=== PATIENT | female | born 1980 | race Caucasian/White ===

== ENCOUNTER 2018-08-07 14:31 | Outpatient (CLI) | payer OTHER ==
[~2018-08-07] VITALS: Ht 154.9 cm; Wt 60.1 kg
[2018-08-07 14:43] VITALS: Ht 154.9 cm; Wt 60.1 kg
[2018-08-07] MEDS ORDERED: PREN-93 PO (14:45)
--- NOTE | 2018-08-07 17:48 | TRIAGE ---
OB Triage Datetime Report Generated by CPN: 08/07/2018 17:48 Datetime: 08/07/2018 17:44 Stage of : OB Triage Maternal Assessment Level of Consciousness: Fully Conscious DTR's/Clonus: DTRs 1+ Headache: Denies Nausea/Vomiting: Denies RUQ Epigastric Pain: Denies Labor Evaluation Frequency: NONE Monitor Mode: External Quality: Mild Resting Tone [place]: Relaxed Heart Rate FHR Baseline Rate: 145 Monitor Mode: External US Variability: Moderate 6-25 bpm Accelerations: 15X15 Decelerations: None Category: Category I Pain Assessment Pain Scale: 0 Pain Presence: None/Denies Pain Type: N/A Pain Goal: 3 Vaginal Exam Membrane Status: Intact Datetime: 08/07/2018 16:56 Stage of : OB Triage Maternal Assessment Level of Consciousness: Fully Conscious DTR's/Clonus: DTRs 1+ Headache: Denies Nausea/Vomiting: Denies RUQ Epigastric Pain: Denies Labor Evaluation Frequency: NONE Monitor Mode: External Quality: Mild Resting Tone [place]: Relaxed Heart Rate FHR Baseline Rate: 145 Monitor Mode: External US Variability: Moderate 6-25 bpm Accelerations: 15X15 Decelerations: None Category: Category I Pain Assessment Pain Scale: 0 Pain Presence: None/Denies Pain Type: N/A Pain Goal: 3 Vaginal Exam Membrane Status: Intact Datetime: 08/07/2018 15:20 Maternal Assessment Level of Consciousness: Fully Conscious DTR's/Clonus: DTRs 1+ Headache: Denies Blurred Vision: No Nausea/Vomiting: Denies RUQ Epigastric Pain: Denies Facial Edema: None Labor Evaluation Frequency: NONE Monitor Mode: External Quality: Mild Resting Tone [place]: Relaxed Heart Rate FHR Baseline Rate: 145 Monitor Mode: External US Variability: Moderate 6-25 bpm Accelerations: 10X10 Decelerations: None Category: Category I Pain Assessment Pain Scale: 0 Pain Presence: None/Denies Pain Type: N/A Pain Goal: 3 Vaginal Exam Membrane Status: Intact Datetime: 08/07/2018 15:06 EGA: 32.0 Datetime: 08/07/2018 14:30 Assessment Type: Triage Maternal Assessment Level of Consciousness: Fully Conscious DTR's/Clonus: DTRs 2+; No Clonus Respiratory Effort: Unlabored; Regular Rhythm; Equal Expansion Breath Sounds, Left: Clear and Equal Breath Sounds, Right: Clear and Equal Nausea/Vomiting: Denies RUQ Epigastric Pain: Denies Lower Extremities Edema: Bilateral Lower Extremities Degree: Pitting Upper Extremities Edema: Bilateral Upper Extremities Degree: Pitting Facial Edema: None Fall Risk Assessment History of Falling: (0) No Secondary Diagnosis: (0) No Ambulatory Aid: (0) Bedrest/Nurse Assist IV Therapy: (0) No Gait: (0) Normal/Bedrest/Immobile Mental Status: (0) Oriented to Own Ability Fall Score: 0 Fall Risk Score Definition: No Risk: No action required Datetime: 08/07/2018 14:10 Time of Arrival: 08/07/2018 14:10 Arrived By: Ambulatory Arrived From: Office Chief Complaint: PT CAME IN FROM CLINIC TO R/O PIH Movement: Present Contractions: Denies/Absent Rupture of Membranes: Denies Vaginal Discharge: Denies Recent Sexual Intercouse: Denies Abdominal Trauma: Not Applicable Additional Patient Complaints: NONE Time Provider Notified: 08/07/2018 14:30 Provider Notified: BEN Initial Plan: NST, BPP, [place] PANEL
--- NOTE | 2018-08-07 18:11 | PN ---
Triage Information Date/Time Reason for visit: R/O preeclampsia Weeks of Gestation 38-year-old 3 para 2 at 32 weeks of gestation with estimated date of delivery October 02, 2018 She was sent from clinic with elevated blood pressures of 141/92 and 158/101 in the clinic although normal blood pressures here in triage Patient was complaining of blurry vision in the clinic and pitting edema She denies headache or right upper quadrant pain She reports positive movement, denies uterine contractions, denies vaginal bleeding or leaking fluid, Here for R/O preeclampsia /Para Diabetes: none Hypertention: induced Objective Heart Rate: 140's Heart Rate Comments heart tracing category 1 Contractions: None Results/Medications Result Diagram: 08/07/18 1500 08/07/18 1500 Results 24 hrs Laboratory Tests Test 08/07/18 14:55 08/07/18 15:00 Urine Color YELLOW Urine Clarity SLIGHTLY CLOUDY A Urine pH 5.0 Urine Specific [place] 1.028 Urine Ketones NEGATIVE Urine Nitrite NEGATIVE Urine Bilirubin NEGATIVE Urine Urobilinogen NEGATIVE Urine Leukocyte Esterase NEGATIVE Urine Microscopic RBC 1 Urine Microscopic WBC 1 Urine Squamous Epithelial Cells MODERATE Urine Bacteria FEW A Urine Mucus FEW A Urine Hemoglobin NEGATIVE Urine Glucose NEGATIVE Urine Total Protein NEGATIVE White Blood Count 10.1 Red Blood Count 4.10 L Hemoglobin 11.9 L Hematocrit 35.7 L Mean Corpuscular Volume 87.1 Mean Corpuscular Hemoglobin 29.0 Mean Corpuscular Hemoglobin Concent 33.3 Red Cell Distribution Width 13.4 Platelet Count 300 Mean Platelet Volume 9.7 Immature Granulocytes % 0.600 H Neutrophils % 72.5 Lymphocytes % 17.3 Monocytes % 8.3 Eosinophils % 1.0 Basophils % 0.3 Nucleated Red Blood Cells % 0.0 Immature Granulocytes # 0.060 H Neutrophils # 7.3 Lymphocytes # 1.8 Monocytes # 0.8 Eosinophils # 0.1 Basophils # 0.0 Nucleated Red Blood Cells # 0.0 Prothrombin Time 11.6 L Prothrombin Time Ratio 0.9 INR International Normalized Ratio 0.84 Activated Partial Thromboplast Time 25.2 Fibrinogen 563.0 H Sodium Level 137 Potassium Level 4.1 Chloride Level 110 Carbon Dioxide Level 20 L Anion Gap 7 Blood Urea Nitrogen 9 Creatinine 0.42 L Est Glomerular Filtrat Rate mL/min > 60 Glucose Level 88 Uric Acid 3.7 Calcium Level 9.0 Total Bilirubin 0.3 Direct Bilirubin 0.00 Indirect Bilirubin 0.3 Aspartate Amino Transf (AST/SGOT) 15 Alanine Aminotransferase (ALT/SGPT) 26 Alkaline Phosphatase 139 H Total Protein 6.4 Albumin 3.2 L Globulin 3.20 Albumin/Globulin Ratio 1.00 Imaging Results PROCEDURE: OB ultrasound for Biophysical Profile. CLINICAL INDICATION: High blood pressure TECHNIQUE: Multiple sonographic images of the gravid uterus were obtained. COMPARISON: None FINDINGS: There is a single live intrauterine in cephalic presentation with heart rate of 159 beats per minute. RONALD is 2.57 cm + 4.08 cm + 2.05 cm + 1.51 cm = 10.21 cm. Biophysical profile is as follows: Movement: 2 Tone: 2 Breathin Fluid: 2 IMPRESSION: Single live intrauterine , cephalic presentation, heart rate of 159 beats per minute. Biophysical Profile 10/26. RPTAT: PP Edgard Barrientos Physician Date Time Electronically viewed and signed by Edgard Barrientos Physician on 08/07/2018 16:26 RP/ CC: MELINDA URBINA MD [id number] Disposition: Discharge Assessment/Plan Patient reports that she no longer has blurry vision Patient was sent home with instruction for 24-hour urine protein collection Patient was instructed to return in 48 hours for repeat NST and BPP Labor precautions were given kick count instructions were given Patient instructed to follow-up with her own [facility] in 1 to 2 days JAYY CONTRERAS MD August 07, 2018 18:11
== END 2018-08-07 17:43 | disposition home or self-care (01) ==
LOC: L-D 14:31 → OBT 14:31
PROVIDERS: ATTEND Obstetrics & Gynecology
DX: O26.893 Other specified pregnancy related conditions, third trimester (principal); H53.8 Other visual disturbances; O13.3 Gestational [pregnancy-induced] hypertension without significant proteinuria, third trimester; O14.03 Mild to moderate pre-eclampsia, third trimester; O09.523 Supervision of elderly multigravida, third trimester; Z3A.32 32 weeks gestation of pregnancy
CPT/HCPCS: 76818; 80053; 81001; 84560; 85025; 85384; 85610; 85730; Z7500; 81003; G0463

== ENCOUNTER 2018-08-09 14:53 | Outpatient (CLI) | payer OTHER ==
[~2018-08-09] VITALS: Ht 170.2 cm; Wt 107.0 kg
[~2018-08-09 14:53] MED LIST: PREN-93 PO
[2018-08-09 15:13] VITALS: Ht 170.2 cm; Wt 107.0 kg
[2018-08-09 15:14] VITALS: BP 129/84; PULSE 81; RESP 18
--- NOTE | 2018-08-09 17:41 | PN ---
Triage Information Date/Time 08/09/18 Reason for visit: here with 24hr urine collection Weeks of Gestation 32w2d /Para Diabetes: none Additional information swollen hands Objective Vital Signs Date Temp Pulse Resp B/P (MAP) Pulse Ox O2 O2 Flow FiO2 Time Delivery Rate 08/09/18 97.9 81 18 129/84 Room Air 15:14 (99) Heart Rate: 140's Contractions: None Results/Medications Results 24 hrs Laboratory Tests Test 08/09/18 15:27 Urine Random Creatinine 78.31 Urine Collection Duration 24 Urine Total Volume 24 Hours 1300 Urine Creatinine Timed 24 Creatinine Clearance 176.7 H Urine Total Volume (Protein) 1300 Urine Total Protein 24 Hour 143.0 Imaging Results BPP 10/26 RONALD 14.1 Disposition: Discharge Assessment/Plan A IUP 32w2d R/O PIH normotensive P discharge home f/u with her OB MARY HERNANDEZ MD August 09, 2018 17:41
--- NOTE | 2018-08-09 17:42 | TRIAGE ---
OB Triage Datetime Report Generated by CPN: 08/09/2018 17:41 Datetime: 08/09/2018 17:17 Labor Evaluation Frequency: none Monitor Mode: External Resting Tone [place]: Relaxed Heart Rate FHR Baseline Rate: 135 Monitor Mode: External US FHR Baseline Changes: No Baseline Change Variability: Moderate 6-25 bpm Accelerations: 15X15 Decelerations: None Category: Category I Datetime: 08/09/2018 16:20 Labor Evaluation Frequency: x1 Monitor Mode: External Duration (sec)2399: 90 Quality: Mild Resting Tone [place]: Relaxed Contraction Comments: pt denies feeling UCs Heart Rate FHR Baseline Rate: 140 Monitor Mode: External US FHR Baseline Changes: No Baseline Change Variability: Moderate 6-25 bpm Accelerations: 15X15 Decelerations: None Category: Category I Datetime: 08/09/2018 15:21 Stage of : OB Triage Assessment Type: Triage Maternal Assessment Level of Consciousness: Fully Conscious DTR's/Clonus: DTRs 2+; No Clonus Headache: Denies Blurred Vision: No Respiratory Effort: Unlabored; Regular Rhythm; Equal Expansion Breath Sounds, Left: Clear and Equal Breath Sounds, Right: Clear and Equal Nausea/Vomiting: Denies RUQ Epigastric Pain: Denies Lower Extremities Edema: None Degree: None Upper Extremities Edema: None Degree: None Facial Edema: None Temperature Route: Oral Fall Risk Assessment History of Falling: (0) No Secondary Diagnosis: (0) No Ambulatory Aid: (0) Bedrest/Nurse Assist IV Therapy: (0) No Gait: (0) Normal/Bedrest/Immobile Mental Status: (0) Oriented to Own Ability Fall Score: 0 Fall Risk Score Definition: No Risk: No action required Labor Evaluation Frequency: none Monitor Mode: External Heart Rate FHR Baseline Rate: 140 Monitor Mode: External US FHR Baseline Changes: No Baseline Change Variability: Moderate 6-25 bpm Accelerations: 15X15 Decelerations: None Category: Category I Pain Assessment Pain Scale: 0 Pain Presence: None/Denies Pain Type: N/A Datetime: 08/07/2018 17:45 Time of Arrival: 08/09/2018 14:45 EGA: 32.2 Arrived By: Ambulatory Arrived From: Home Chief Complaint: BPP; 24 hours urine Movement: Present Contractions: Denies/Absent Rupture of Membranes: Denies Vaginal Bleeding: None Vaginal Discharge: Denies Recent Sexual Intercouse: Denies Abdominal Trauma: Not Applicable Patient Complaints: None Time Provider Notified: 08/09/2018 15:51 Provider Notified: Dr Bettencourt Initial Plan: NST, EFM Datetime: 08/07/2018 15:06 EGA: 32.0 Datetime: 08/07/2018 14:30 Fall Score: 0 Fall Risk Score Definition: No Risk: No action required
== END 2018-08-09 17:36 | disposition home or self-care (01) ==
LOC: OBT 14:53 → L-D 14:55 → OBT 17:36
PROVIDERS: ATTEND Obstetrics & Gynecology
DX: O26.893 Other specified pregnancy related conditions, third trimester (principal); M79.89 Other specified soft tissue disorders; O09.523 Supervision of elderly multigravida, third trimester; Z3A.32 32 weeks gestation of pregnancy
CPT/HCPCS: 76818; 82575; 84156; Z7500; G0463

== ENCOUNTER 2018-08-11 15:50 | Inpatient (IN) | payer OTHER ==
[~2018-08-11] VITALS: Ht 170.2 cm; Wt 107.0 kg
--- NOTE | 2018-08-11 18:04 | PREOPHP ---
DATE OF ADMISSION: 08/11/2018 HISTORY OF PRESENT ILLNESS: Ms. Rodrigue Huff is a 38-year-old 3, para 2, EDC 10/02/2018 i ntrauterine at 32 weeks and 4 days gestational age, presented to triage diagnosed with pret erm premature rupture of membrane/positive vaginal pooling with contractions. Currently, she is lyin g in supine position with no apparent distress. She denies any contractions, vaginal bleeding, heada leora, nausea, vomiting, shortness of breath, or visual changes. Her vital signs are stable. Her pren ata care took place at the [facility]. PAST MEDICAL HISTORY: None. MEDICATIONS: vitamins. PAST SURGICAL HISTORY: None. OBSTETRICAL HISTORY: x2 vaginal delivery. GYNECOLOGIC HISTORY: 14, regular 3 to 4 days. Denies any sexually transmitted disease. Sexually ac tive with 1 partner. SOCIAL HISTORY: Denies any smoking, drugs or alcohol. FAMILY HISTORY: None. REVIEW OF SYSTEMS: All within normal except history of present illness. PHYSICAL EXAMINATION: HEENT: Within normal. LUNGS: CTA bilateral. CARDIOVASCULAR: S1, S2, regular rhythm. ABDOMEN: Gravid, nontender. Negative CVA bilateral. EXTREMITIES: Negative edema. No calf tenderness. PELVIC: Vaginal exam short and closed. heart tracing category 1. [place]: Occasional contracti ons. ASSESSMENT: Intrauterine at 32 weeks and 4 days gestational age with premature rup ture of membrane. PLAN: Admit patient for continuous monitoring, perinatology consult, neonatology consult. Pro phylactic antibiotics. GBS culture, urine culture, and urine GC chlamydia. Steroid treatment for fe alexis lung maturity. Ultrasound for estimated weight and RONALD/biophysical profile. Dictated By: MELINDA JARRELL/FARIHA Conf#: [id number] DID#: [id number]
[2018-08-11] MEDS: LACTATED RINGER'S 1,000 ML IV SCH ×2 (18:36→18:37)
[2018-08-11] MEDS: AMPICILLIN 2 GM/NS (PMX) 100 ML IV SCH ×2 (18:51→23:50)
[2018-08-11] MEDS ORDERED: AZITHROMYCIN 250 MG TAB PO SCH (20:00)
[2018-08-11] MEDS: ACETAMINOPHEN 325 MG TAB PO PRN (21:24)
[2018-08-11] MEDS: BETAMET NA PHOS/AC(6 MG/ML) 2 ML INJ SYG IM SCH (22:38)
[2018-08-12] MEDS: AMPICILLIN 2 GM/NS (PMX) 100 ML IV SCH ×3 (06:02→18:32)
[2018-08-12] MEDS: LACTATED RINGER'S 1,000 ML IV SCH ×2 (06:02→18:32)
[2018-08-12] MEDS: DOCUSATE SODIUM 100 MG CAP PO SCH (08:37)
--- NOTE | 2018-08-12 10:25 | QN ---
Documentation Comment progress note patient seen and evaluated no complaints no vaginal leaking vs stable afebrile ab gravid nt extremity no edema no calf tenderness ve differed Intrauterine at 32 weeks and 5 days gestational age with premature rupture of membrane. p/ continue antibiotics treatment nicu consult perinatology consult MELINDA URBINA MD August 12, 2018 10:25
[2018-08-12 11:15] VITALS: Ht 170.2 cm; Wt 107.0 kg
[2018-08-12] MEDS ORDERED: AZITHROMYCIN 500MG/NS (PMX) 250 ML IVPB ONE (22:00)
[2018-08-12] MEDS: BETAMET NA PHOS/AC(6 MG/ML) 2 ML INJ SYG IM SCH (22:11)
[2018-08-13] MEDS: AMPICILLIN 2 GM/NS (PMX) 100 ML IV SCH ×3 (00:18→12:21)
[2018-08-13] MEDS: LACTATED RINGER'S 1,000 ML IV SCH ×2 (01:49→07:59)
--- NOTE | 2018-08-13 08:35 | CONS ---
Consultation Date/Type/Reason Admit Date/Time August 11, 2018 at 15:50 Date of Consultation: August 13, 2018 Type of Consult Medicine Reason for Consultation Requested by Dr. James to rehabilitation counsellor mother regarding anticipated course and potential problems associated with delivery @ 32 completed weeks. Mother is a 38 yo [id number] with EDC 10/02/2018 (EGA 32 6/7 wks). labs: HBsAg-, RPR NR, HIV -, Rubella immune, and GBS Unknown. Uncomplicated until PROM 08/11/2018. Admitted to L&D afebrile with no contractions. Treated with Betamethasone (08/11, 08/12) and antibiotics (Azithromycin, Ampicillin). Discussed with mother at bedside delivery at 32 completed weeks of pandya fetus having received full course of steroids. Explained very high survival rate but requirement for continuous monitoring in NICU. Discussed potential complications associated with pulmonary immaturity and possible requirement for respiratory assistance, although diminished in part due to steroids. Major concern associated with infection due to PPROM and likelihood of initial antibiotic course. Apnea of prematurity, temperature instability, and feeding problems would likely contribute the greatest to duration of hospitalization. Mother appeared to understand and asked appropriate questions. Assured mother of availability to answer any further questions which may arise. Date/Time of Note DATE: 08/13/18 TIME: 08:13 Past Medical History Home Meds Reported Medications Vit No.124/Iron/FA ( Vitamin Tablet) 1 Each Tablet, 1 EACH PO, TAB 08/07/18 Medications Current Medications Lactated Ringer's 1,000 ml @ 125 mls/hr Q8H IV Last administered on 08/13/18at 07:59; Admin Dose 125 MLS/HR; Start 08/11/18 at 17:49 Docusate Sodium (Colace) 100 mg DAILY PO ; Start 08/12/18 at 09:00 Acetaminophen (Tylenol Tab) 650 mg Q4H PRN PO .PAIN OR TEMP Last administered on 08/11/18at 21:24; Admin Dose 650 MG; Start 08/11/18 at 18:00 Ampicillin 100 ml @ 100 mls/hr Q6 IV Last administered on 08/13/18at 06:04; Admin Dose 100 MLS/HR; Start 08/11/18 at 18:00; Stop 08/13/18 at 17:59 Amoxicillin (Amoxicillin) 500 mg Q8 PO ; Start 08/13/18 at 22:00; Stop 08/18/18 at 21:59 Azithromycin (Zithromax) 250 mg DAILY PO ; Start 08/14/18 at 09:00; Stop 08/19/18 at 09:00 Allergies: Coded Allergies: No Known Allergy (Unverified , 08/07/18) Social History Smoking Status: Never smoker Exam/Review of Systems Exam Vitals Intake and Output 08/12/18 08/12/18 08/13/18 1515:00 23:00 07:00 IntakeIntake Total 1000 ml 725 ml 975 ml OutputOutput Total 700 ml 1500 ml 700 ml BalanceBalance 300 ml -775 ml 275 ml Results Result Diagram: 08/11/18 1700 08/11/18 1700 Results 24hrs Laboratory Tests Test 08/13/18 06:41 Lab Scanned Report REFERENCE LAB Medications Medication Current Medications Lactated Ringer's 1,000 ml @ 125 mls/hr Q8H IV Last administered on 08/13/18at 07:59; Admin Dose 125 MLS/HR; Start 08/11/18 at 17:49 Docusate Sodium (Colace) 100 mg DAILY PO ; Start 08/12/18 at 09:00 Acetaminophen (Tylenol Tab) 650 mg Q4H PRN PO .PAIN OR TEMP Last administered on 08/11/18at 21:24; Admin Dose 650 MG; Start 08/11/18 at 18:00 Ampicillin 100 ml @ 100 mls/hr Q6 IV Last administered on 08/13/18at 06:04; Admin Dose 100 MLS/HR; Start 08/11/18 at 18:00; Stop 08/13/18 at 17:59 Amoxicillin (Amoxicillin) 500 mg Q8 PO ; Start 08/13/18 at 22:00; Stop 08/18/18 at 21:59 Azithromycin (Zithromax) 250 mg DAILY PO ; Start 08/14/18 at 09:00; Stop 08/19/18 at 09:00 WENDY LEES MD August 13, 2018 08:35
[2018-08-13] MEDS: DOCUSATE SODIUM 100 MG CAP PO SCH (09:29)
[2018-08-13] MEDS: AMOXICILLIN 500 MG CAP PO SCH (22:35)
[2018-08-14] MEDS: AMOXICILLIN 500 MG CAP PO SCH ×3 (05:08→21:26)
[2018-08-14] MEDS: DOCUSATE SODIUM 100 MG CAP PO SCH (09:00)
[2018-08-14] MEDS: AZITHROMYCIN 250 MG TAB PO SCH (09:35)
[2018-08-15] MEDS: AMOXICILLIN 500 MG CAP PO SCH ×3 (05:32→22:33)
--- NOTE | 2018-08-15 07:54 | QN ---
Documentation Comment progress note patient seen and evaluated no complaints no vaginal leaking vs stable afebrile ab gravid nt extremity no edema no calf tenderness ve differed fhr cat 1 toco no ctx Intrauterine at 33 weeks and 1 days gestational age with premature rupture of membrane. completed steroid treatment p/ continue antibiotics treatment nicu consult perinatology consult MELINDA URBINA MD August 15, 2018 07:54
[2018-08-15] MEDS: DOCUSATE SODIUM 100 MG CAP PO SCH (09:50)
[2018-08-15] MEDS: AZITHROMYCIN 250 MG TAB PO SCH (09:50)
[2018-08-15] MEDS: PRENATAL VITAMIN PO SCH (20:04)
--- NOTE | 2018-08-16 01:58 | CONS ---
DATE OF ADMISSION: 08/11/2018 DATE OF CONSULTATION: 08/15/2018 HISTORY OF PRESENT ILLNESS: The patient is currently at 33 weeks and one day, presented with oligohy dramnios and despite IV fluid hydration, her fluid has remained low and today it is 5 cm. Also, just recently, she started having elevated blood pressures. She is asymptomatic currently. heart tone Is reassuring. ROM Plus was negative; however, because of the patient's complaint of leakage of fluid, there is a possibility that there is premature rupture of membranes. RECOMMENDATION: Her blood pressures have been in the moderate to one diastolic blood pressure of ove r 100 mmHg. Overall, delivery is recommended at 34 weeks because of most likely rupture of the membr ane secondarily possibility of severe preeclampsia, which could explain her oligohydramnios secondary to placental insufficiency. We will monitor the patient with you. Continue with the continuous fet al heart tone monitoring and delivery earlier is recommended if there is any evidence of nonreassurin g heart tone or chorioamnionitis. Otherwise, delivery at 34 weeks and she has received betamet hasone, so no longer is necessary for betamethasone. Dictated By: SEAN URRUTIA/FARIHA Conf#: [id number] DID#: [id number]
--- NOTE | 2018-08-16 05:10 | QN ---
Documentation Comment progress note patient seen and evaluated no complaints no vaginal leaking vs stable afebrile ab gravid nt extremity no edema no calf tenderness ve differed fhr cat 1 toco no ctx Intrauterine at 33 weeks and 2 days gestational age with premature rupture of membrane. completed steroid treatment p/ continue antibiotics treatment deliver at 34 wks MELINDA URBINA MD August 16, 2018 05:10
[2018-08-16] MEDS: AMOXICILLIN 500 MG CAP PO SCH ×3 (06:14→22:40)
[2018-08-16] MEDS: PRENATAL VITAMIN PO SCH (08:42)
[2018-08-16] MEDS: DOCUSATE SODIUM 100 MG CAP PO SCH (08:42)
[2018-08-16] MEDS: AZITHROMYCIN 250 MG TAB PO SCH (08:42)
[2018-08-17] MEDS: AMOXICILLIN 500 MG CAP PO SCH ×3 (05:01→21:28)
[2018-08-17] MEDS: ACETAMINOPHEN 325 MG TAB PO PRN (06:09)
--- NOTE | 2018-08-17 06:11 | QN ---
Documentation Comment progress note patient seen and evaluated no complaints no vaginal leaking vs stable afebrile ab gravid nt extremity no edema no calf tenderness ve differed fhr cat 1 toco no ctx Intrauterine at 33 weeks and 3 days gestational age with premature rupture of membrane. completed steroid treatment p/ continue antibiotics treatment deliver at 34 wks MELINDA URBINA MD August 17, 2018 06:11
[2018-08-17] MEDS: PRENATAL VITAMIN PO SCH (08:43)
[2018-08-17] MEDS: AZITHROMYCIN 250 MG TAB PO SCH (08:43)
[2018-08-17] MEDS: DOCUSATE SODIUM 100 MG CAP PO SCH (08:43)
[2018-08-18] MEDS: AMOXICILLIN 500 MG CAP PO SCH ×3 (06:08→21:58)
[2018-08-18] MEDS: ACETAMINOPHEN 325 MG TAB PO PRN (06:09)
[2018-08-18] MEDS: AZITHROMYCIN 250 MG TAB PO SCH (09:43)
[2018-08-18] MEDS: PRENATAL VITAMIN PO SCH (09:43)
[2018-08-18] MEDS: DOCUSATE SODIUM 100 MG CAP PO SCH (09:43)
--- NOTE | 2018-08-18 17:38 | QN ---
Documentation Comment no more leaking fluid no uc's or cramping pain abdomen non tender WBC 10.800 no febrile episodes A IUP 33w4d PPROM P deliver at 34weeks MARY HERNANDEZ MD August 18, 2018 17:38
[2018-08-19] MEDS: PRENATAL VITAMIN PO SCH (09:14)
[2018-08-19] MEDS: DOCUSATE SODIUM 100 MG CAP PO SCH (09:14)
[2018-08-19] MEDS: AZITHROMYCIN 250 MG TAB PO SCH (09:14)
--- NOTE | 2018-08-19 11:39 | QN ---
Documentation Comment HD # 8 IUP at 33w 5d PPROM. Steroid 08/11 ad 08/12. Rcv'd antibiotics Amoxicillin and Azithromycin Pt feels good and is in good spirits. No contractions. +FM Fundus NT. NST reactive and without decels. 08/15 RONALD 5.08 P: Continue care. Plan is to deliver the pt 08/21 at 34 weeks. ERWIN PUTNAM MD Aug 19, 2018 11:39
[2018-08-20] MEDS: PRENATAL VITAMIN PO SCH (08:14)
[2018-08-20] MEDS: DOCUSATE SODIUM 100 MG CAP PO SCH (08:14)
[2018-08-20] MEDS ORDERED: DIPHENHYDRAMINE 25 MG CAP PO PRN (09:30)
--- NOTE | 2018-08-20 15:03 | QN ---
Documentation Comment 33w6d No CTXs No complains NST reactive [place] NO CTXs Pelvic Deferred --->Delivery at 34+wks --->continuos monitoring SCOTT PEREA M.D. Aug 20, 2018 15:03
[2018-08-20] MEDS: ACETAMINOPHEN 325 MG TAB PO PRN (19:55)
[2018-08-21] MEDS: ACETAMINOPHEN 325 MG TAB PO PRN (08:10)
[2018-08-21] MEDS: DOCUSATE SODIUM 100 MG CAP PO SCH (09:11)
[2018-08-21] MEDS: PRENATAL VITAMIN PO SCH (09:11)
--- NOTE | 2018-08-21 10:14 | QN ---
Documentation Comment progress note patient seen and evaluated no complaints no vaginal leaking vs stable afebrile ab gravid nt extremity no edema no calf tenderness ve 1/40/-3 fhr cat 1 toco no ctx Intrauterine at 34 weeks and 0 days gestational age with premature rupture of membrane. completed steroid treatment p/ start cytotec for cervical ripening followed by pitocin for induction patient is aware of plan and agrees with r/b/a/ MELINDA URBINA MD Aug 21, 2018 10:14
[2018-08-21] MEDS: LACTATED RINGER'S 1,000 ML IV SCH ×3 (10:50→22:56)
[2018-08-21] MEDS ORDERED: MISOPROSTOL 200 MCG TAB PR PRN (11:00)
[2018-08-21] MEDS ORDERED: LIDOCAINE 1% (MPF) 30 ML INJ INJ PRN (11:00)
[2018-08-21] MEDS ORDERED: CARBOPROST 250 MCG INJ IM PRN (11:00)
[2018-08-21] MEDS ORDERED: OXYTOCIN 30 UNITS/LR 500 ML IV SCH ×2 (11:00)
[2018-08-21] MEDS ORDERED: IBUPROFEN 600 MG TAB PO PRN (11:00)
[2018-08-21] MEDS ORDERED: BUTORPHANOL 2 MG INJ IV PRN ×2 (11:00)
[2018-08-21] MEDS ORDERED: OXYTOCIN 30 UNITS/LR 500 ML IV PRN (11:00)
[2018-08-21] MEDS ORDERED: MISOPROSTOL 50 MCG CAPSULE PO SCH (11:00)
[2018-08-21] MEDS ORDERED: METHYLERGONOVINE 0.2 MG INJ IM PRN (11:00)
[2018-08-21] MEDS: MISOPROSTOL 50 MCG CAPSULE PO SCH ×4 (11:18→23:00)
[2018-08-21] MEDS ORDERED: AMPICILLIN 2 GM/NS (PMX) 100 ML IV ONE (11:30)
[2018-08-21] MEDS: AMPICILLIN 1 GM/NS (PMX) 50 ML IV SCH ×3 (15:31→23:52)
[2018-08-22] MEDS: LACTATED RINGER'S 1,000 ML IV SCH ×3 (01:22→07:41)
--- NOTE | 2018-08-22 01:34 | PREAC ---
Date/Time of Note Date/Time of Note DATE: 08/22/18 TIME: Anesthesia Eval and Record Evaluation Time Pre-Procedure Interview DATE: 08/22/18 TIME: :33 Age 38 Sex female NPO: 8 hrs Preoperative diagnosis iup at 33 weeks Planned procedure labor epidural Past Medical History Past Medical History: Includes GI: Obesity Surgery & Anesthesia Issues No known issue Meds Anticoagulation: No Beta Imelda within 24 hr: No Reason Beta Imelda not given: Pt. not on B-Imelda Reported Medications Vit No.124/Iron/FA ( Vitamin Tablet) 1 Each Tablet, 1 EACH PO, TAB 08/07/18 Current Medications Docusate Sodium (Colace) 100 mg DAILY PO Last administered on 08/21/18 09:11; Admin Dose 100 MG; Start 08/12/18 at 09:00 Acetaminophen (Tylenol Tab) 650 mg Q4H PRN PO .PAIN OR TEMP Last administered on 08/21/18 08:10; Admin Dose 650 MG; Start 08/11/18 at 18:00 Prenat Multivit/ [place]/Iron/Folic Ac () 1 tab DAILY PO Last administered on 08/21/18at 09:11; Admin Dose 1 TAB; Start 08/15/18 at 17:00 Diphenhydramine HCl (Benadryl) 25 mg Q8 PRN PO ITCHING Last administered on 08/20/18at 09:38; Admin Dose 25 MG; Start 08/20/18 at 09:30 Lactated Ringer's 1,000 ml @ 125 mls/hr Q8H IV Last administered on 08/22/18at 01:22; Admin Dose 125 MLS/HR; Start 08/21/18 at 10:39 Butorphanol Tartrate (Stadol) 1 mg Q2H PRN IV .PAIN SCALE 1-5; Start 08/21/18 at 11:00 Butorphanol Tartrate (Stadol) 2 mg Q2H PRN IV .PAIN SCALE 6-10 Last administered on 08/21/18at 23:46; Admin Dose 2 MG; Start 08/21/18 at 11:00 Lidocaine (Xylocaine 1% (Mpf)) 30 ml ONCE PRN INJ .EPISIOTOMY; Start 08/21/18 at 11:00 Oxytocin/Lactated Ringer's 500 ml @ 500 mls/hr ONCE POST IV ; Start 08/21/18 at 11:00 Oxytocin/Lactated Ringer's 500 ml @ 125 mls/hr POST IV ; Start 08/21/18 at 11:00 Ibuprofen (Motrin) 600 mg ONCE PRN PO .PAIN 1-5; Start 08/21/18 at 11:00 Oxytocin/Lactated Ringer's 500 ml @ 0 mls/hr ONCE PRN IV .VAGINAL BLEEDING; Start 08/21/18 at 11:00 Methylergonovine Maleate (Methergine) 0.2 mg ONCE PRN IM .VAGINAL BLEEDING; Start 08/21/18 at 11:00 Carboprost Tromethamine (Hemabate) 250 mcg ONCE PRN IM .VAGINAL BLEEDING; Start 08/21/18 at 11:00 Misoprostol (Cytotec) 1,000 mcg ONCE PRN DE .VAGINAL BLEEDING; Start 08/21/18 at 11:00 Misoprostol (Cytotec 50 Mcg Capsule) 50 mcg Q4H PO Last administered on 08/21/18at 19:00; Admin Dose 50 MCG; Start 08/21/18 at 11:00; Stop 08/22/18 at 07:01 Ampicillin 50 ml @ 100 mls/hr Q4H IV Last administered on 08/21/18at 23:52; Admin Dose 100 MLS/HR; Start 08/21/18 at 15:30 Meds reviewed: Yes Allergies Coded Allergies: No Known Allergy (Unverified , 08/07/18) Allergies Reviewed: Yes Labs/Studies Labs Reviewed: Reviewed by anesthesiologist Result Diagram: 08/21/18 1030 Laboratory Tests 08/21/18 10:30 Blood Bank Test 08/21/18 10:30 Antibody Screen NEGATIVE Blood Type O POSITIVE Rh Immune Globulin Candidate NO test: Positive Pre-procedure Exam Airway: Adequate mouth opening, Adequate thyromental dist Mallampati: Mallampati II Teeth: Normal Lung: Normal Heart: Normal ASA Physical Status ASA physical status: 2 Emergency: None Planned Anesthetic Neuraxial: Epidural Planned Pain Management Parenteral pain med Pre-operative Attestations Prior to commencing anesthesia and surgery, the patient was re-evaluated, there was verification of: *The patient's identity *The results of appropriate recent lab work and preoperative vital signs *The above evaluation not changing prior to induction *Anesthetic plan, risk benefits, alternative and complications discussed with patient/family; questions answered; patient/family understands, accepts and wishes to proceed. AZUL JIMENEZ Aug 22, 2018 01:34
[2018-08-22] MEDS ORDERED: FENTAnyl 2MCG/ML-ROPIV 0.2% 100 ML ONE (01:35)
[2018-08-22] MEDS ORDERED: ONDANSETRON 4 MG INJ IV PRN ×3 (02:00→09:00)
[2018-08-22] MEDS ORDERED: DIPHENHYDRAMINE 50 MG INJ IV PRN ×3 (02:00→09:00)
[2018-08-22] MEDS ORDERED: NALOXONE (0.4 MG/ML) INJ IV PRN ×2 (02:00→09:00)
[2018-08-22] MEDS ORDERED: FENTAnyl 2MCG/ML-ROPIV 0.2% 100 ML BAG EPI SCH (02:00)
[2018-08-22] MEDS ORDERED: OXYTOCIN 30 UNITS/LR 500 ML IV SCH ×2 (02:30→09:22)
[2018-08-22] MEDS: MISOPROSTOL 50 MCG CAPSULE PO SCH ×2 (03:00→07:00)
[2018-08-22] MEDS: AMPICILLIN 1 GM/NS (PMX) 50 ML IV SCH ×2 (03:22→07:31)
--- NOTE | 2018-08-22 06:59 | QN ---
Documentation Comment progress note patient seen and evaluated no complaints no vaginal leaking vs stable afebrile ab gravid nt extremity no edema no calf tenderness ve 4/80/-2 fhr cat 2 toco regular Intrauterine at 34 weeks and 1 days gestational age with premature rupture of membrane. cat 2 tracing, remote from delivery p/stop pitocin consent for primary cd r/b/a/ explained and patient agrees MELINDA URBINA MD Aug 22, 2018 06:59
[2018-08-22] MEDS ORDERED: AZITHROMYCIN 500MG/NS (PMX) 250 ML IVPB ONE (07:00)
--- NOTE | 2018-08-22 07:01 | HPN ---
Date/Time of Note Date/Time of Note DATE: 08/22/18 TIME: 07:00 Interval H&P Admission Note Pt. seen H&P reviewed: Systems changes noted below Intrauterine at 34 weeks and 1 days gestational age with premature rupture of membrane. cat 2 tracing with induction, remote from delivery MELINDA URBINA MD Aug 22, 2018 07:00
[2018-08-22] MEDS ORDERED: CEFAZOLIN 2 GM/50 ML (PMX) 50 ML IVPB SCH (07:30)
--- NOTE | 2018-08-22 08:29 | PAC ---
Date/Time of Note Date/Time of Note DATE: 08/22/18 TIME: 08:28 Post-Anesthesia Notes Post-Anesthesia Note Last documented vital signs TEMP 98.2 BP 116/67 P 74 o2 SAT 98% Activity: WNL Respiratory function: WNL Cardiovascular function: WNL Mental status: Baseline Pain reasonably controlled: Yes Hydration appropriate: Yes Nausea/Vomiting absent: Yes AZUL JIMENEZ Aug 22, 2018 08:29
[2018-08-22] MEDS ORDERED: CEFAZOLIN 1 GM INJ ONE (08:30)
[2018-08-22] MEDS ORDERED: PHENYLephrine (100 MCG/ML) 10ML SYG ONE (08:30)
[2018-08-22] MEDS ORDERED: OXYTOCIN 30 UNITS/LR 500 ML BAG IV ONE (08:30)
[2018-08-22] MEDS ORDERED: CHLOROPROCAINE 3% (MPF) 20 ML INJ ONE (08:30)
[2018-08-22] MEDS ORDERED: FENTAnyl 50 MCG/ML VIAL ONE (08:49)
[2018-08-22] MEDS ORDERED: HYDROmorphONE 0.5 MG/0.5 ML SYG IV PRN ×2 (09:00)
[2018-08-22] MEDS ORDERED: METOCLOPRAMIDE 10 MG INJ IV PRN (09:00)
[2018-08-22] MEDS ORDERED: ALBUTEROL 0.083% (NEB) 2.5 MG/3 ML AMP HHN PRN (09:00)
[2018-08-22] MEDS ORDERED: FENTAnyl 50 MCG/ML VIAL IV PRN ×2 (09:00)
[2018-08-22] MEDS ORDERED: HYDROmorphONE 1 MG/5 ML IV SYRINGE IV PRN ×3 (09:00)
[2018-08-22] MEDS ORDERED: KETOROLAC 30 MG INJ IV PRN (09:00)
--- NOTE | 2018-08-22 09:22 | OPPN ---
Date/Time of Note Date/Time of Note DATE: 08/22/18 TIME: 09:20 Operative Report Planned Procedure Procedure date Aug 22, 2018 Procedure(s) primary low transverse CD Performed by see signature line Upper Cutter Machine: SOCTT PEREA M.D. 2nd Upper Cutter Machine none Pre-procedure diagnosis Intrauterine at 34 weeks and 1 days gestational age with premature rupture of membrane. cat 2 tracing with induction, remote from delivery [id number] Anesthesia Type: Efros8k epidural Post-Procedure Post-procedure diagnosis same Findings a viable male 8/9 weight 4lb 8 oz. Normal uterus tubes and ovaries Estimated Blood Loss: 500 - 600 mls Specimen(s) none Grafts/Implant(s) none Complication(s) none MELINDA URBINA MD Aug 22, 2018 09:22
[2018-08-22] MEDS ORDERED: morphine SULFATE/PF (10 MG/10 ML) INJ ONE (09:25)
[2018-08-22] MEDS ORDERED: OXYTOCIN 30 UNITS/LR 500 ML IV PRN (09:30)
[2018-08-22] MEDS: CEFAZOLIN 2 GM/50 ML (PMX) 50 ML IVPB SCH ×2 (09:30→17:14)
[2018-08-22] MEDS ORDERED: MISOPROSTOL 200 MCG TAB PR PRN (09:30)
[2018-08-22] MEDS ORDERED: OXYCODONE/ACETAMINOPHEN (5/325) TAB PO PRN (09:30)
[2018-08-22] MEDS ORDERED: CARBOPROST 250 MCG INJ IM PRN (09:30)
[2018-08-22] MEDS ORDERED: NACL 0.9% 3 ML SYG IV SCH (09:30)
[2018-08-22] MEDS ORDERED: METHYLERGONOVINE 0.2 MG INJ IM PRN (09:30)
[2018-08-22] MEDS ORDERED: LANOLIN HPA 1 PKT TOP PRN (09:30)
[2018-08-22] MEDS: IBUPROFEN 600 MG TAB PO SCH ×2 (12:00→18:00)
--- NOTE | 2018-08-22 13:23 | PAC ---
Date/Time of Note Date/Time of Note DATE: 08/22/18 TIME: 13:22 Post-Anesthesia Notes Post-Anesthesia Note Activity: WNL Respiratory function: WNL Cardiovascular function: WNL Mental status: Baseline Pain reasonably controlled: Yes Hydration appropriate: Yes Nausea/Vomiting absent: Yes EVANGELIST SAMPSON Aug 22, 2018 13:23
[2018-08-22 13:37] VITALS: BP 121/80; PULSE 78; RESP 18
[2018-08-22 16:50] VITALS: BP 118/73; PULSE 80; RESP 17
[2018-08-22] MEDS: KETOROLAC 30 MG INJ IV PRN (17:14)
[2018-08-22 20:00] VITALS: BP 109/62; PULSE 95; RESP 18
[2018-08-22 20:15] VITALS: BP 109/62; PULSE 95; RESP 18
[2018-08-22] MEDS: SENNA/DOCUSATE NA (8.6MG/50MG) TAB PO SCH (21:18)
--- NOTE | 2018-08-22 22:15 | OPR ---
DATE OF OPERATION: 08/22/2018 PRIMARY DIAGNOSES: Intrauterine at 34 weeks and 1 day gestational age with prematu re rupture of membrane, category 2 tracing with induction, remote from delivery. POSTOPERATIVE DIAGNOSES: Intrauterine at 34 weeks and 1 day gestational age with p remature rupture of membrane, category 2 tracing with induction, remote from delivery. PROCEDURE: Primary low transverse delivery. SURGEON: Kris James MD ALUM MIXER: Randall Castañeda MD ANESTHESIA: Epidural. COMPLICATIONS: None. ESTIMATED BLOOD LOSS: 500 mL FINDINGS: A viable male, 8 and 9 respectively at 1 and 5 minutes, weight 4 pounds 8 ounces. N ormal uterus, tubes and ovaries. DESCRIPTION OF PROCEDURE: After explaining the risks, benefits and alternatives, the patient had con sent signed in chart. The patient was taken to the operating room where epidural anesthesia was foun d to be adequate. She was then prepared and draped in normal sterile fashion in dorsal supine positi on with a leftward tilt. A Pfannenstiel skin incision was then made with a scalpel and carried to th e underlying of the fascia. The fascia was incised in the midline and the incision was extended late rally with Downs scissors. The superior aspect of the fascial incision was grasped with curved clamps , elevated, and the underlying rectus muscles dissected off bluntly. Attention was then turned to th e inferior aspect incision which in similar fashion was grasped, tented up with curved clamps and the rectus muscles dissected off bluntly. The rectus muscles in midline, peritoneum identifie d, tented up, entered sharply with Metzenbaum scissors. The peritoneal incision was extended superio rly with good visualization of the bladder. The bladder blade was inserted and the lower uterine seg ment incised in transverse fashion with a scalpel. The uterine incision was extended laterally. The bladder blade was removed and the infant's head delivered atraumatically. The nose and mouth were s uctioned, and cord clamped and cut. The was handed off to awaiting NICU team. The placenta w as then removed. The uterus was exteriorized and cleared of all clots and debris. The uterine incis ion was repaired with 1-0 chromic in a running locked fashion. A second layer of the same suture was used for imbrication obtaining excellent hemostasis. The uterus was returned to the abdomen. The g utters were cleared of all clots. The peritoneum and rectus abdominis muscles were reapproximated wi th 2-0 Vicryl in interrupted fashion. The fascia was reapproximated with 0 Vicryl in a running fashi on. The subcutaneous tissue was reapproximated with 2-0 plain gut in a running fashion. The skin wa s closed with absorbable huma. The patient tolerated procedure well. Sponge, lap and needle coun ts were correct. The patient was taken to recovery in stable condition. Dictated By: KRIS JARRELL/FARIHA Conf#: [id number] DID#: [id number]
[2018-08-23 00:15] VITALS: BP 106/65; PULSE 96; RESP 20
[2018-08-23] MEDS: LACTATED RINGER'S 1,000 ML IV SCH ×4 (00:39→17:00)
[2018-08-23] MEDS: CEFAZOLIN 2 GM/50 ML (PMX) 50 ML IVPB SCH (01:32)
[2018-08-23] MEDS: KETOROLAC 30 MG INJ IV PRN (02:37)
[2018-08-23 04:15] VITALS: BP 105/63; PULSE 77; RESP 18
[2018-08-23] MEDS: IBUPROFEN 600 MG TAB PO SCH ×4 (05:48→17:32)
[2018-08-23 08:00] VITALS: BP 105/79; PULSE 86; RESP 18
[2018-08-23] MEDS: OXYCODONE/ACETAMINOPHEN (5/325) TAB PO PRN ×3 (09:10→21:14)
[2018-08-23] MEDS: SENNA/DOCUSATE NA (8.6MG/50MG) TAB PO SCH ×2 (09:11→21:14)
[2018-08-23] MEDS ORDERED: CEFAZOLIN 2 GM/50 ML (PMX) 50 ML IVPB SCH (09:30)
[2018-08-23 15:40] VITALS: BP 121/97; PULSE 81; RESP 18
--- NOTE | 2018-08-23 19:01 | QN ---
Documentation Comment progress note pod 1 patient was seen and evaluated no complaints vs stable afebrile ab incision c/d/i no distention, nt extremity no edema no calf tenderness a/ sp cd pod 1 stable afebrile p/ iron supplement encourage ambulation MELINDA URBINA MD Aug 23, 2018 19:01
[2018-08-23 20:00] VITALS: BP 122/68; PULSE 97; RESP 18
[2018-08-23] MEDS: FERROUS SULFATE (EC) 325 MG TAB PO SCH (21:14)
[2018-08-24] MEDS: IBUPROFEN 600 MG TAB PO SCH ×4 (00:11→18:57)
[2018-08-24] MEDS: OXYCODONE/ACETAMINOPHEN (5/325) TAB PO PRN ×4 (02:32→21:59)
[2018-08-24 04:15] VITALS: BP 129/75; PULSE 76; RESP 18
[2018-08-24 08:20] VITALS: BP 119/87; PULSE 81; RESP 18
[2018-08-24] MEDS: FERROUS SULFATE (EC) 325 MG TAB PO SCH ×2 (09:05→21:19)
[2018-08-24] MEDS: SENNA/DOCUSATE NA (8.6MG/50MG) TAB PO SCH ×2 (09:05→21:19)
[2018-08-24 16:05] VITALS: BP 130/76; PULSE 91; RESP 18
[2018-08-24 20:00] VITALS: BP 127/84; PULSE 96; RESP 18
--- NOTE | 2018-08-24 20:14 | QN ---
Documentation Comment progress note pod 2 patient was seen and evaluated no complaints vs stable afebrile ab c/d/i no distention nt extremity no edema no calf tenderness a/ sp cd pod 2 stable afebrile p/ discharge home tomorrow MELINDA URBINA MD Aug 24, 2018 20:14
--- NOTE | 2018-08-24 20:15 | PD.PPDC ---
LAMBSKIN TRIMMER Discharge Instruction Condition [id number] Patient Condition: Ahhhj7h Good Diet Gdvbs3Ra Diet: Bvfqs3m Resume Regular Diet Activity/Restrictions [id number] Activity: Aymaf8h Normal Activity May Shower [id number] Restrictions: Dtixs0s No Exercising No Lifting No Driving No Sexual Activity Nothing in the Vagina No [place] No Tampons, douche Follow-up Follow-up with Physician: 2, Week/Weeks Return to clinic for Nfryr0Ge ALL SOURCE ANALYST Instructions: Wqufj7t Fever greater than 101 Chills Worsening abdominal pain Excessive Vaginal Bleeding More than 2 pads per hour Unable to tolerate diet Qvjgv4Cm OB Instructions: Nwvjz5e Breast Tenderness Depression Blurried Vision Headache Kbetj7Np Surgical Instructions: Uumnp6x Incisional Drainage Incisional Redness MELINDA URBINA MD Aug 24, 2018 20:15
[2018-08-25] MEDS: IBUPROFEN 600 MG TAB PO SCH ×3 (00:46→12:12)
[2018-08-25] MEDS: OXYCODONE/ACETAMINOPHEN (5/325) TAB PO PRN ×2 (02:56→11:25)
--- NOTE | 2018-08-25 06:35 | DS ---
DATE OF ADMISSION: 08/11/2018 DATE OF DISCHARGE: 08/25/2018 PRIMARY DIAGNOSES: Intrauterine at 34 weeks and 1 day gestational age with prematu re rupture of membrane, category 2 tracing with induction, remote from delivery. PROCEDURE: Primary low transverse delivery. CONDITION ON DISCHARGE: Stable. ACTIVITY: None per vagina, no lifting x6 weeks. DIET: Regular. MEDICATIONS ON DISCHARGE: 1. Motrin. 2. Iron. 3. Colace. DISCHARGE SUMMARY: Ms. Rodrigue Huff was admitted on 08/11/2018 secondary to premature rup ture of membrane. She was given antibiotic and steroid treatment for lung maturity. She was s tarted for induction at 34 weeks; however, the fetus had persistent category 2 tracing, where she und erwent a primary delivery on 08/22/2018. She had a viable male, 8 and 9 respectively at 1 and 5 minutes, weight 4 pounds 8 ounces. She had an uneventful postop day 1 and 2. She was dis charged on postop day 3. Her incision is clean, dry, and intact. She is ambulating, tolerating diet , positive flatulence, positive bowel movement. She will follow up in the clinic in 2 weeks for post /postop care. Dictated By: MELINDA JARRELL/FARIHA Conf#: [id number] DID#: [id number]
[2018-08-25 08:30] VITALS: BP 132/84; PULSE 115; RESP 18
[2018-08-25] MEDS: FERROUS SULFATE (EC) 325 MG TAB PO SCH (09:23)
[2018-08-25] MEDS: SENNA/DOCUSATE NA (8.6MG/50MG) TAB PO SCH (09:23)
--- NOTE | 2018-08-26 16:21 | DELSUM ---
Delivery Summary A-C Datetime Report Generated by CPN: 08/26/2018 16:21 DELIVERY PERSONNEL Case Briefer: Mari Valladares MATERNAL INFORMATION Delivery Anesthesia: Epidural Medications in Delivery: See anesthesiologist notes Delivery QBL (ml): 600 Placenta Cultured: No Maternal Complications: PROM LABOR SUMMARY EDC: 10/02/2018 00:00 No. Babies in Womb: 1 Attempted: No Labor Anesthesia: Epidural LABOR INFORMATION Reason for Induction: PROM Onset of Labor: 08/22/2018 05:02 Cervical Ripening Agents: Cytotec @ 50 Oxytocin: Induction Group B Beta Strep: Not Done Antibiotics # of Doses: 8 Antibiotics Time of Last Dose: 08/22/2018 08:37 Steroids Given: None Reason Steroids Not Administered: Not Applicable MEMBRANES Membranes Rupture Method: Spontaneous Rupture of Membranes: 08/11/2018 19:19 Length of Rupture (hr): 253.62 Amniotic Fluid Color: Clear Amniotic Fluid Amount: Large Amniotic Fluid Odor: None STAGES OF LABOR Stage 3 hr: 0 Stage 3 min: 2 Total Time in Labor hr: 3 Total Time in Labor min: 56 CSECTION DELIVERY Primary Indication: Failed Induction Other Primary Indication: PROM Secondary Indication: Nonreassuring Stat CSection Urgency: Non Elective CSection Incidence: Primary Labor: Labor Elective: Nonelective CSection Incision: Lower Uterine Transverse BABY A INFORMATION Delivery Date/Time: 08/22/2018 08:56 Method of Delivery: Born in Route : No : N/A Forceps: N/A Vacuum Extraction: N/A Shoulder Dystocia : N/A SHOULDER DYSTOCIA BABY A Delivery Date/Time: 08/22/2018 08:56 PRESENTATION/POSITION BABY A Presentation: Cephalic Cephalic Presentation: Vertex Vertex Position: Left Occipital Anterior Breech Presentation: N/A PLACENTA INFORMATION BABY A Placenta Delivery Time : 08/22/2018 08:58 Placenta Method of Delivery: Manual Removal Placenta Status: Delivered SCORES BABY A Heart Rate 1 min: >100 bpm Resp Effort 1 min: Good Cry Reflex Irritability 1 min: Cough/Sneeze/Pulls Away Muscle Tone 1 min: Active Motion Color 1 min: Blue/Pale Resuscitation Effort 1 min: Tactile Stimulation SCORE 1 MIN: 8 Heart Rate 5 min: >100 bpm Resp Effort 5 min: Good Cry Reflex Irritability 5 min: Cough/Sneeze/Pulls Away Muscle Tone 5 min: Active Motion Color 5 min: Body Morven, Extremit Blue Resuscitation Effort 5 min: Tactile Stimulation SCORE 5 MIN: 9 INFANT INFORMATION BABY A Gestational Age at Delivery: 34.1 Gestational Status: Late - 34- 36.6 Weeks Outcome : Liveborn Condition : Stable Infant Sex: Male IDENTIFICATION/MEDS BABY A ID Band Number: [id number] ID Band Location: Right Leg; Left Arm Sensor Applied: No Vitamin K Given : Not Given Erythromycin Given: Not Given WEIGHT/LENGTH BABY A Birthweight (gm): 2040 Weight (lb): 4 Infant Weight (oz): 8 Infant Length (in): 17.50 Infant Length (cm): 44.45 CORD INFORMATION BABY A No. Cord Vessels: 3 Nuchal Cord : N/A Cord Blood Taken: No Infant Suction: Mouth; Nose ASSESSMENT BABY A Physical Findings at Delivery: Within Normal Limits Infant Respirations: Appears Normal Insurance Underwriter Sales/ALS Called : Yes Transferred To: NICU
== END 2018-08-25 13:30 | disposition home or self-care (01) | DRG 788 ==
LOC: L-D 15:50 → PP1 08-15 22:41 → L-D 08-21 10:06 → PP1 08-22 13:24 → EDSTATUS 10-05 15:47
PROVIDERS: ADMIT Obstetrics & Gynecology; ATTEND Obstetrics & Gynecology
PROC: 10D00Z1 Extraction of Products of Conception, Low, Open Approach (ICD-10-PCS; principal; 2018-08-22 08:00)
DX: O60.13X0 Preterm labor second trimester with preterm delivery third trimester, not applicable or unspecified (principal); O76 Abnormality in fetal heart rate and rhythm complicating labor and delivery; Z3A.34 34 weeks gestation of pregnancy; Z37.0 Single live birth
CPT/HCPCS: 62322; 76815; 76818; 80053; 80076; 80307; 81001; 81003; 83789; 84112; 84560; 85025; 85384; 85610; 85730; 86592; 86850; 86900; 86901; 87081; 87086; 87340; 87591; 99464; J2400; J0290; J0456; J0595; J0690; J0702; J1170; J1200; J1885; J2274; J2370; J2405; J2590; J3010; J7120

== ENCOUNTER 2018-10-01 08:35 | Emergency (ER) | payer OTHER ==
[~2018-10-01] VITALS: Ht 162.6 cm; Wt 89.0 kg
[2018-10-01 08:37] VITALS: BP 130/78; PULSE 78; RESP 18; Ht 162.6 cm; Wt 89.0 kg
[2018-10-01] MEDS ORDERED: BEN25 PO (09:17)
[2018-10-01] MEDS ORDERED: HC30CR25 TOP (09:17)
[2018-10-01] MEDS ORDERED: [UNRECOGNIZED DRUG - CODE] TP (09:17)
--- NOTE | 2018-10-01 09:22 | ERD ---
ER Documentation Chief Complaint Chief Complaint POSSIBLE CYST/ABCESS OVER SITE, SURGERY ON August HPI 38-year-old female presented to ED for a wound check on a surgical scar for she had her on August 22. Patient was seen by her primary care doctor 3 days ago and was given a prescription for hydrocortisone. Patient states has not really helped and she is reporting to the ER today because she states that the area still itches. Patient denies any fever chills pain in the region. Patient denies any vaginal discharge or vaginal bleeding. Patient denies any allergies to medications. Patient states her only past medical history is hypertension. ROS All systems reviewed and are negative except as per history of present illness. Medications Home Meds Active Scripts Benzoyl Peroxide (BENZOYL PEROXIDE) 60 Gm Foam, 60 GM TP QAM for 7 Days Prov:KIRIT DOMINGUEZ PA-C 10/01/18 Hydrocortisone* Topical (Hydrocortisone* Topical) 2.5%-28.3 Gm Cream..g., 1 APPLIC TOP BID, #1 TUB Prov:KIRIT DOMINGUEZ PA-C 10/01/18 Diphenhydramine Hcl* (Benadryl*) 25 Mg Cap, 25 MG PO Q6 PRN for ITCHING/RASH, #30 TAB Prov:KIRIT DOMINGUEZ PA-C 10/01/18 Reported Medications Vit No.124/Iron/FA ( Vitamin Tablet) 1 Each Tablet, 1 EACH PO, TAB 08/07/18 Allergies Allergies: Coded Allergies: No Known Allergy (Unverified , 10/01/18) PMhx/Soc History of Surgery: Yes () Anesthesia Reaction: No Hx Neurological Disorder: No Hx Respiratory Disorders: No Hx Cardiac Disorders: No Hx Psychiatric Problems: No Hx Miscellaneous Medical Probl: No Hx Alcohol Use: No Hx Substance Use: No Hx Tobacco Use: No Smoking Status: Never smoker FmHx Family History: No diabetes, No coronary disease, No other Physical Exam Vitals Vital Signs Date Temp Pulse Resp B/P (MAP) Pulse Ox O2 O2 Flow FiO2 Time Delivery Rate 10/01/18 98.3 78 18 130/78 99 08:37 (95) Physical Exam Const: No acute distress Head: Atraumatic Eyes: Normal Conjunctiva ENT: Normal External Ears, Nose and Mouth. Neck: Full range of motion. No meningismus. Resp: Clear to auscultation bilaterally Cardio: Regular rate and rhythm, no murmurs Abd: Soft, non tender, non distended. Normal bowel sounds. No palpable masses, Skin: scar non-erythematous, no signs of streaking, no pain to palpation, negative Nikolsky sign. Mild irritation to the hair follicles surrounding the surgical scar. Procedures/MDM Wound Check Wound shows no evidence of infection, foreign body, neurologic injury, vascular injury, open joint or tendon laceration. Patient appropriate for outpatient follow up Medical decision makin-year-old female presented to ED for irritation to post surgical incision site. Patient had on September 21. Patient had no complications with the surgery. Patient is presented to ED because the surgical site is itchy. The patient has remained afebrile and denies fever chills or pain over the last few days. Patient states that she was seen at her primary care provider the other day for this issue and was given a topical hydrocortisone which has only been helping a little bit. Physical exam shows a well-healing surgical site with no signs of cellulitis or infection. Patient does have mild irritation to the hair follicles surrounding the surgical site there is no drainage or pus or signs of streaking. There are no palpable masses or pain on palpation to the region the patient denies vaginal discharge or vaginal bleeding. At this time I have low suspicion for cellulitis, abscess, internal hemorrhage, deep space infection,scarlet fever, necrotizing fasciitis, sepsis, gangrene, Bradley-Ken syndrome, toxic epidural necrolysis, abscess, cellulitis, herpes zoster, viral exanthem, anaphylaxis, allergic reaction, allergic contact dermatitis, irritant contact dermatitis, fungal infection, insect bite, impetigo, dermatitis. Patient was given prescription for hydrocortisone Benadryl and benzyl peroxide. Patient is being treated for folliculitis with instructions to follow back up with her OB who performed surgeon. Patient was advised if she experiences any worsening pain, irritation fever chills drainage from the wound site vaginal discharge or bleeding to return to ED immediately. Patient is agreement the treatment plan and had no further questions upon discharge Prescription for home: Hydrocortisone Benadryl Benzyl peroxide I have discussed with the patient proper use and common side effects to expert with the medication . I advised the patient/family to speak with the pharmacist dispensing the medication to be advised of any potential drug interactions with other medication or supplements they may be taking. Discharge: At this time, patient is stable for discharge and outpatient management. I have instructed the patient to follow-up with his\her primary care physician in 1 to 2 days. I have discussed with the patient the possibility of needing to see a specialist for further work-up and imaging studies if symptoms persist. I have instructed the patient to promptly return to the ER for any new or worsening symptoms including increased pain, fever, nausea, vomiting, weakness or LOC. The patient and\or family expressed understanding of and agreement with this plan. All questions were answered. Home care instructions were provided. Departure Diagnosis: Primary Impression: Folliculitis Additional Impressions: Itchy skin Encounter for post surgical wound check Condition: Stable Patient Instructions: Self-Care for Skin Rashes Referrals: [facility] YOU HAVE RECEIVED A MEDICAL SCREENING EXAM AND THE RESULTS INDICATE THAT YOU DO NOT HAVE A CONDITION THAT REQUIRES URGENT TREATMENT IN THE EMERGENCY DEPARTMENT. FURTHER EVALUATION AND TREATMENT OF YOUR CONDITION CAN WAIT UNTIL YOU ARE SEEN IN YOUR DOCTORS OFFICE WITHIN THE NEXT 1-2 DAYS. IT IS YOUR RESPONSIBILITY TO MAKE AN APPOINTMENT FOR FOLOW-UP CARE. IF YOU HAVE A PRIMARY DOCTOR --you should call your primary doctor and schedule an appointment IF YOU DO NOT HAVE A PRIMARY DOCTOR YOU CAN CALL OUR PHYSICIAN REFERRAL HOTLINE AT IF YOU CAN NOT AFFORD TO SEE A PHYSICIAN YOU CAN CHOSE FROM THE FOLLOWING [facility] [address] [facility]. [facility] [address] [facility] [facility] [address] [facility] [facility] [address] [facility] [address] [facility]. [facility]. [address] [facility]. [facility] YOU HAVE RECEIVED A MEDICAL SCREENING EXAM AND THE RESULTS INDICATE THAT YOU DO NOT HAVE A CONDITION THAT REQUIRES URGENT TREATMENT IN THE EMERGENCY DEPARTMENT. FURTHER EVALUATION AND TREATMENT OF YOUR CONDITION CAN WAIT UNTIL YOU ARE SEEN IN YOUR DOCTORS OFFICE WITHIN THE NEXT 1-2 DAYS. IT IS YOUR RESPONSIBILITY TO MAKE AN APPOINTMENT FOR FOLOW-UP CARE. IF YOU HAVE A PRIMARY DOCTOR --you should call your primary doctor and schedule and appointment IF YOU DO NOT HAVE A PRIMARY DOCTOR YOU CAN CALL OUR PHYSICIAN REFERRAL HOTLINE AT . IF YOU CAN NOT AFFORD TO SEE A PHYSICIAN YOU CAN CHOSE FROM THE FOLLOWING [facility] INSTITUTIONS: [facility] [address] [place] [address] [facility] [address] [place] [address] [facility] [address] [place] [address] Additional Instructions: Call your primary care doctor TOMORROW for an appointment during the next 1-2 days.See the doctor sooner or return here if your condition worsens before your appointment time. KIRIT DOMINGUEZ PA-C Oct 01, 2018 09:22
== END 2018-10-01 09:26 | disposition home or self-care (01) ==
LOC: E/R 08:35 → FTE 09:26
DX: O99.73 Diseases of the skin and subcutaneous tissue complicating the puerperium (principal); L73.9 Follicular disorder, unspecified; Z48.01 Encounter for change or removal of surgical wound dressing
CPT/HCPCS: 99283

== ENCOUNTER 2018-10-07 19:50 | Emergency (ER) | payer OTHER ==
[~2018-10-07] VITALS: Ht 162.6 cm; Wt 104.6 kg
[~2018-10-07 19:50] MED LIST changes: +BEN25 PO; +HC30CR25 TOP; +[UNRECOGNIZED DRUG - CODE] TP
[2018-10-07 19:53] VITALS: Ht 162.6 cm; Wt 104.6 kg
[2018-10-07] MEDS ORDERED: SODIUM CHLORIDE 0.9% 1L BAG IV* STA (21:02)
[2018-10-07] MEDS ORDERED: CLINDAMYCIN 900 MG/D5W (PMX) 50 ML IVPB STA (21:02)
[2018-10-07] MEDS ORDERED: CLIN300C10 PO (22:16)
--- NOTE | 2018-10-07 22:18 | ERD ---
ER Documentation Chief Complaint Chief Complaint Pt reports rash and drainage from csection site HPI 38-year-old female presents status post approximately 3 weeks ago. She has had some redness on her abdominal wall above the surgical site. She was treated with Keflex 3 days ago by her INTERLINE CLERK. She is also given benzyl peroxide and Benadryl. Patient states that she has had increasing redness of the skin of the abdomen. She denies measured fevers, vomiting, vaginal bleeding, additional symptoms. ROS All systems reviewed and are negative except as per history of present illness. Medications Home Meds Active Scripts Clindamycin Hcl* (Clindamycin Hcl*) 300 Mg Capsule, 300 MG PO QID for 10 Days, CAP Prov:FADIA KRISHNA MD 10/07/18 Benzoyl Peroxide (BENZOYL PEROXIDE) 60 Gm Foam, 60 GM TP QAM for 7 Days Prov:KIRIT DOMINGUEZ PA-C 10/01/18 Hydrocortisone* Topical (Hydrocortisone* Topical) 2.5%-28.3 Gm Cream..g., 1 RUKHSANA LIC TOP BID, #1 TUB Prov:KIRIT DOMINGUEZ PA-C 10/01/18 Diphenhydramine Hcl* (Benadryl*) 25 Mg Cap, 25 MG PO Q6 PRN for ITCHING/RASH, #30 TAB Prov:KIRIT DOMINGUEZ PA-C 10/01/18 Reported Medications Vit No.124/Iron/FA ( Vitamin Tablet) 1 Each Tablet, 1 EACH PO, TAB 08/07/18 Allergies Allergies: Coded Allergies: No Known Allergy (Unverified , 10/01/18) PMhx/Soc History of Surgery: Yes () Anesthesia Reaction: No Hx Neurological Disorder: No Hx Respiratory Disorders: No Hx Cardiac Disorders: No Hx Psychiatric Problems: No Hx Miscellaneous Medical Probl: No Hx Alcohol Use: No Hx Substance Use: No Hx Tobacco Use: No Smoking Status: Never smoker FmHx Family History: No diabetes, No coronary disease, No other Physical Exam Vitals Vital Signs Date Temp Pulse Resp B/P (MAP) Pulse Ox O2 O2 Flow FiO2 Time Delivery Rate 10/07/18 98.0 89 16 124/71 98 19:53 (88) Physical Exam Const: No acute distress Head: Atraumatic Eyes: Normal Conjunctiva ENT: Normal External Ears, Nose and Mouth. Neck: Full range of motion. No meningismus. Resp: Clear to auscultation bilaterally Cardio: Regular rate and rhythm, no murmurs Abd: Soft, non tender, non distended. Normal bowel sounds. There is some warmth and erythema in the lower abdominal wall above the site. There is no appreciable fluctuance, induration, streaking, bleeding or discharge. Skin: No petechiae or rashes Back: No midline or flank tenderness Ext: No cyanosis, or edema Neur: Awake and alert Psych: Normal Mood and Affect Result Diagram: 10/07/18211710/07/182117 Results 24 hrs Laboratory Tests Test 10/07/18 21:18 10/07/18 21:35 White Blood Count 8.0 10^3/ul Red Blood Count 4.64 10^6/ul Hemoglobin 13.0 g/dl Hematocrit 40.9 % Mean Corpuscular Volume 88.1 fl Mean Corpuscular Hemoglobin 28.0 pg Mean Corpuscular Hemoglobin Concent 31.8 g/dl Red Cell Distribution Width 14.7 % Platelet Count 345 10^3/UL Mean Platelet Volume 9.0 fl Immature Granulocytes % 0.500 % Neutrophils % 49.0 % Lymphocytes % 34.6 % Monocytes % 9.6 % Eosinophils % 5.7 % Basophils % 0.6 % Nucleated Red Blood Cells % 0.0 /100WBC Immature Granulocytes # 0.040 10^3/ul Neutrophils # 3.9 10^3/ul Lymphocytes # 2.8 10^3/ul Monocytes # 0.8 10^3/ul Eosinophils # 0.5 10^3/ul Basophils # 0.1 10^3/ul Nucleated Red Blood Cells # 0.0 10^3/ul Urine Color STRAW Urine Clarity SLIGHTLY CLOUDY Urine pH 6.0 Urine Specific Elroy 1.012 Urine Ketones NEGATIVE mg/dL Urine Nitrite NEGATIVE mg/dL Urine Bilirubin NEGATIVE mg/dL Urine Urobilinogen NEGATIVE mg/dL Urine Leukocyte Esterase NEGATIVE Gilma/ul Urine Microscopic RBC 0 /HPF Urine Microscopic WBC 0 /HPF Urine Squamous Epithelial Cells FEW /HPF Urine Hemoglobin NEGATIVE mg/dL Urine Glucose NEGATIVE mg/dL Urine Total Protein NEGATIVE mg/dl Sodium Level 140 mmol/L Potassium Level 5.1 mmol/L Chloride Level 105 mmol/L Carbon Dioxide Level 28 mmol/L Anion Gap 7 Blood Urea Nitrogen 15 mg/dl Creatinine 0.55 mg/dl Est Glomerular Filtrat Rate mL/min > 60 mL/min Glucose Level 92 mg/dl Calcium Level 9.4 mg/dl Total Bilirubin 0.4 mg/dl Direct Bilirubin 0.00 mg/dl Indirect Bilirubin 0.4 mg/dl Aspartate Amino Transf (AST/SGOT) 20 IU/L Alanine Aminotransferase (ALT/SGPT) 30 IU/L Alkaline Phosphatase 106 IU/L Total Protein 6.9 g/dl Albumin 3.9 g/dl Globulin 3.00 g/dl Albumin/Globulin Ratio 1.30 POC Venous Lactate 0.8 mmol/L Current Medications Medications Dose Sig/Uday Start Time Status Last (Trade) Ordered Route PRN Stop Time Admin Dose Reason Admin Sodium 3,140 ml BOLUS OVER 2 10/07/18 DC 10/07/18 Chloride HOURS STAT 21:02 21:28 (NS) IV* 10/07/18 21:09 Clindamycin 50 ml @ 50 ONCE STAT 10/07/18 DC 10/07/18 HCl/ mls/hr IVPB 21:02 21:37 Dextrose 10/07/18 22:01 Procedures/MDM Patient presents with what appears to be abdominal wall cellulitis without appreciable abscess. CBC is normal and lactate normal. Blood cultures pending. Patient was given clindamycin 900 mg IV. Patient does not demonstrate SIRS criteria or signs of severe sepsis. She appears amenable to outpatient treatment with addition of MRSA coverage. She is advised to take clindamycin as prescribed at home and recheck in 2 days, sooner for fevers, worsening redness, new worsening symptoms. Is no signs of intra-abdominal tenderness to suggest intra-abdominal abscess or additional complications. The patient was stable with no new complaints during the ER course. Clinically, there is no current evidence to suggest meningitis, sepsis, acute abdomen, pneumonia, stroke, acute coronary syndrome, pulmonary embolism, aortic dissection or any other emergent condition appearing to require further evaluation or hospitalization. Patient counseled regarding my diagnostic impression and care plan. Prior to discharge all questions answered. Pt agrees with treatment plan and understands strict return precautions. Pt is instructed to follow up with primary care provider within 24-48 hours. Precautionary instructions provided including instructions to return to the ER if not improving or for any worsening or changing symptoms or concerns. Disclaimer: Inadvertent spelling and grammatical errors are likely due to EHR/dictation software use and do not reflect on the overall quality of patient care. Also, please note that the electronic time recorded on this note does not necessarily reflect the actual time of the patient encounter. Departure Diagnosis: Primary Impression: Cellulitis Site of cellulitis: unspecified site Qualified Codes: L03.90 - Cellulitis, unspecified Condition: Stable Patient Instructions: Cellulitis Additional Instructions: moses normal. cheque otro vez en 2 hamm, mas pronto para fiebre, vomito , mas stevens, nueva simptomas. FADIA KRISHNA MD Oct 07, 2018 22:18
[2018-10-08 02:09] VITALS: BP 113/78; PULSE 75; RESP 17
== END 2018-10-08 02:09 | disposition home or self-care (01) ==
LOC: FTE 19:50
DX: O99.73 Diseases of the skin and subcutaneous tissue complicating the puerperium (principal); L03.311 Cellulitis of abdominal wall
CPT/HCPCS: 36415; 80053; 81001; 83605; 85025; 87040; 96365; 96366; J7030; Z7502; Z7610; 81003

== ENCOUNTER 2018-10-10 18:15 | Emergency (ER) | payer OTHER ==
[~2018-10-10] VITALS: Ht 165.1 cm; Wt 85.0 kg
[~2018-10-10 18:15] MED LIST changes: +CLIN300C10 PO; +NYST15CR28 TOP
[2018-10-10 18:21] VITALS: Ht 165.1 cm; Wt 85.0 kg
[2018-10-10] MEDS ORDERED: DEXAMETHASONE 10 MG/ML 1 ML INJ IV ONE (19:30)
[2018-10-10] MEDS ORDERED: DIPHENHYDRAMINE 50 MG INJ IV ONE (20:00)
[2018-10-10 20:17] VITALS: BP 114/71; PULSE 85; RESP 18
--- NOTE | 2018-10-10 20:36 | ERD ---
ER Documentation Chief Complaint Chief Complaint RASH X 5 DAYS. HPI Patient is a 38-year-old female, status post 3 weeks ago, presents to the ER for concerns of a rash. Patient reports rash to abdominal wall times 2 weeks status post . Patient reports initially being given Keflex by her PORT PURSER and then being switched to clindamycin 3 days ago for concerns of cellulitis. Patient states that she feels as if the antibiotic's were initially helping however the affected area is getting "redder". Patient denies any spreading of redness. Patient denies any fevers or chills. Patient denies any nausea, vomiting, deep abdominal pain, dysuria, urgency, urgency or pelvic discharge. Of note, patient also states that she is having erythematous red spots in her bilateral thighs and on her arms. She states she has had these lesions since she initially started taking Keflex and lesions have persisted since taking clindamycin as well. Patient denies lip swelling, tongue swelling, chest tightness, shortness of breath. Patient is not breast feeding. ROS All systems reviewed and are negative except as per history of present illness. Medications Home Meds Active Scripts Clindamycin Hcl* (Clindamycin Hcl*) 300 Mg Capsule, 300 MG PO QID for 10 Days, CAP Prov:FADIA KRISHNA MD 10/07/18 Benzoyl Peroxide (BENZOYL PEROXIDE) 60 Gm Foam, 60 GM TP QAM for 7 Days Prov:KIRIT DOMINGUEZ PA-C 10/01/18 Hydrocortisone* Topical (Hydrocortisone* Topical) 2.5%-28.3 Gm Cream..g., 1 APPLIC TOP BID, #1 TUB Prov:KIRIT DOMINGUEZ PA-C 10/01/18 Diphenhydramine Hcl* (Benadryl*) 25 Mg Cap, 25 MG PO Q6 PRN for ITCHING/RASH, #30 TAB Prov:KIRIT DOMINGUEZ PA-C 10/01/18 Reported Medications Vit No.124/Iron/FA ( Vitamin Tablet) 1 Each Tablet, 1 EACH PO, TAB 08/07/18 Allergies Allergies: Coded Allergies: No Known Allergy (Unverified , 10/01/18) PMhx/Soc Medical and Surgical Hx: pt denies Medical Hx History of Surgery: Yes () Anesthesia Reaction: No Hx Neurological Disorder: No Hx Respiratory Disorders: No Hx Cardiac Disorders: No Hx Psychiatric Problems: No Hx Miscellaneous Medical Probl: No Hx Alcohol Use: No Hx Substance Use: No Hx Tobacco Use: No Smoking Status: Never smoker FmHx Family History: No diabetes Physical Exam Vitals Vital Signs Date Temp Pulse Resp B/P (MAP) Pulse Ox O2 O2 Flow FiO2 Time Delivery Rate 10/10/18 98.3 85 18 114/71 96 20:17 (85) 10/10/18 98.8 18:58 10/10/18 104.1 95 20 124/81 97 18:21 (95) Physical Exam GENERAL: Well-developed, well-nourished female. Appears in no acute distress. Speaking in full sentences. HEAD: Normocephalic, atraumatic. EYES: Pupils are equally reactive bilaterally. EOMs grossly intact. No conjunctival erythema. ENT: Moist mucous membranes. No uvula deviation. No kissing tonsils. No lip swelling. No throat swelling. Oropharynx is open and patient is tolerating secretions well. NECK: Supple. No meningismus. Normal range of motion of the neck. LUNG: Clear to auscultation bilaterally. No rhonchi, wheezing, rales or coarse breath sounds. HEART: Regular rate and rhythm. No murmurs, rubs or gallops. ABDOMEN: Surgical scar appears to be healing well. Area of redness measuring 36 cm x 16 cm noted in lower abdominal wall above site. Mild induration. No fluctuance. No streaking. Mild warmth. No wound dehiscence. Soft and nondistended. Positive bowel sounds in all four quadrants. No rebound tenderness, no guarding. (-) McBurney's point tenderness. No CVA tenderness. EXTREMITIES: Equal pulses bilaterally. No peripheral clubbing, cyanosis or edema. No unilateral leg swelling. NEUROLOGIC: Alert and oriented. Moving all four extremities without any d ifficulty. Normal speech. Steady gait. SKIN: Erythematous hive like lesions on bilateral arms and inner thighs. Negative Nikolsky sign. Result Diagram: 10/10/18191310/10/181913 Results 24 hrs Laboratory Tests Test 10/10/18 19:14 White Blood Count 7.7 10^3/ul Red Blood Count 4.54 10^6/ul Hemoglobin 12.9 g/dl Hematocrit 39.8 % Mean Corpuscular Volume 87.7 fl Mean Corpuscular Hemoglobin 28.4 pg Mean Corpuscular Hemoglobin Concent 32.4 g/dl Red Cell Distribution Width 14.8 % Platelet Count 309 10^3/UL Mean Platelet Volume 9.2 fl Immature Granulocytes % 0.400 % Neutrophils % 49.7 % Lymphocytes % 34.9 % Monocytes % 8.0 % Eosinophils % 6.2 % Basophils % 0.8 % Nucleated Red Blood Cells % 0.0 /100WBC Immature Granulocytes # 0.030 10^3/ul Neutrophils # 3.8 10^3/ul Lymphocytes # 2.7 10^3/ul Monocytes # 0.6 10^3/ul Eosinophils # 0.5 10^3/ul Basophils # 0.1 10^3/ul Nucleated Red Blood Cells # 0.0 10^3/ul Sodium Level 140 mmol/L Potassium Level 4.5 mmol/L Chloride Level 106 mmol/L Carbon Dioxide Level 24 mmol/L Anion Gap 10 Blood Urea Nitrogen 13 mg/dl Creatinine 0.53 mg/dl Est Glomerular Filtrat Rate mL/min > 60 mL/min Glucose Level 103 mg/dl Calcium Level 9.3 mg/dl Total Bilirubin 0.3 mg/dl Direct Bilirubin 0.00 mg/dl Indirect Bilirubin 0.3 mg/dl Aspartate Amino Transf (AST/SGOT) 26 IU/L Alanine Aminotransferase (ALT/SGPT) 25 IU/L Alkaline Phosphatase 111 IU/L Total Protein 6.9 g/dl Albumin 4.1 g/dl Globulin 2.80 g/dl Albumin/Globulin Ratio 1.46 Current Medications Medications Dose Sig/Uday Start Time Status Last (Trade) Ordered Route PRN Stop Time Admin Dose Reason Admin 10 mg ONCE ONCE 10/10/18 DC 10/10/18 Dexamethasone IV 19:30 19:27 (Decadron) 10/10/18 19:31 25 mg ONCE ONCE 10/10/18 DC 10/10/18 Diphenhydrami IV 20:00 19:34 ne HCl 10/10/18 20:01 (Benadryl) Procedures/MDM MEDICAL DECISION MAKING: This is a 38-year-old female, status post and 3 weeks ago, presents the ER for concerns of a rash to her abdominal wall for the last 2 weeks. Patient was seen here 3 days ago and started clindamycin. Patient states that the affected area has gotten "more redder" however she denies any spreading of the affected redness. Vital signs were reviewed. Of note, patient's initial temperature was noted to be 104 at triage. This temperature is likely inaccurate as patient temperature was immediately rechecked upon arriving to ER 2 bed and was noted to be within normal limits. Patient denies taking any antipyretics today. She was not tachycardic. Patient was nontoxic in appearance. On exam, patient had no lip swelling, tongue swelling, difficulty breathing. Patient's oropharynx is open and patient had no trouble tolerating secretions. Patient was noted to have area of cellulitis on abdominal wall. No fluctuance noted. Case was discussed with supervising physician Dr. Watts, who also examined the patient. Overall, he agreed the patient was extremely well-appearing. He advised me to complete repeat blood test. CBC noted no evidence of systemic infection or severe anemia. CMP showed no severe electrolyte abnormalities, acidosis, alkalosis liver failure and renal injury. At this time, we have low suspicion for failed outpatient management as patient symptoms do not appear to be getting significantly worse. He advised me to trial course of Decadron and Benadryl. Patient had no lip swelling, tongue swelling, difficulty breathing, chest tightness. Patient states she did have the rashes on her bilateral arms and legs previous to starting antibiotics. Low suspicion for anaphylaxis or severe allergic reaction to medications. Patient advised to continue clindamycin. Recheck advised in 2 days. Patient given strict return precautions. Affected area is marked and dated. Patient advised to return the ER immediately for any worsening redness, swelling, pain, fever or chills. At this time, patient's presentation is most consistent with cellulitis. Low suspicion for deep space infection, necrotizing fasciitis, sepsis, gangrene, Bradley-Ken syndrome, toxic epidural necrolysis, anaphylaxis, severe allergic reaction. Patient was nontoxic, [id number] prior to discharge. PRESCRIPTIONS: None Patient advised to continue taking clindamycin DISCHARGE: At this time, patient is stable for discharge and outpatient management. I have advised the patient to avoid any new products, creams or possible allergens. I have advised the patient to avoid scratching the lesions. I have instructed the patient to follow-up with his/her primary care physician in 1-2 days. If s ymptoms persist, patient may need to see a intelligence officer basic for further examinations and testing. I have instructed the patient to promptly return to the ER at any time for any new or worsening symptoms including increased pain, fever, redness, swelling, warmth, difficulty breathing or vomiting. The patient and/or family expressed understanding of and agreement with this plan. All questions were answered. Home care instructions were provided. Disclaimer: Inadvertent spelling and grammatical errors are likely due to EHR/dictation software use and do not reflect on the overall quality of patient care. Also, please note that the electronic time recorded on this note does not necessarily reflect the actual time of the patient encounter. Departure Diagnosis: Primary Impression: Cellulitis Site of cellulitis: unspecified site Qualified Codes: L03.90 - Cellulitis, unspecified Additional Impression: Allergic reaction Encounter type: initial encounter Qualified Codes: T78.40XA - Allergy, unspecified, initial encounter Condition: Fair Patient Instructions: First Aid: Allergic Reactions Referrals: [facility] YOU HAVE RECEIVED A MEDICAL SCREENING EXAM AND THE RESULTS INDICATE THAT YOU DO NOT HAVE A CONDITION THAT REQUIRES URGENT TREATMENT IN THE EMERGENCY DEPARTMENT. FURTHER EVALUATION AND TREATMENT OF YOUR CONDITION CAN WAIT UNTIL YOU ARE SEEN IN YOUR DOCTORS OFFICE WITHIN THE NEXT 1-2 DAYS. IT IS YOUR RESPONSIBILITY TO MAKE AN APPOINTMENT FOR FOLOW-UP CARE. IF YOU HAVE A PRIMARY DOCTOR --you should call your primary doctor and schedule an appointment IF YOU DO NOT HAVE A PRIMARY DOCTOR YOU CAN CALL OUR PHYSICIAN REFERRAL HOTLINE AT IF YOU CAN NOT AFFORD TO SEE A PHYSICIAN YOU CAN CHOSE FROM THE FOLLOWING [facility] [address] [facility] [address] [facility]. [facility] [address] [facility] [address] [facility] [address] [facility]. [facility]. [address] [facility]. [facility] YOU HAVE RECEIVED A MEDICAL SCREENING EXAM AND THE RESULTS INDICATE THAT YOU DO NOT HAVE A CONDITION THAT REQUIRES URGENT TREATMENT IN THE EMERGENCY DEPARTMENT. FURTHER EVALUATION AND TREATMENT OF YOUR CONDITION CAN WAIT UNTIL YOU ARE SEEN IN YOUR DOCTORS OFFICE WITHIN THE NEXT 1-2 DAYS. IT IS YOUR RESPONSIBILITY TO MAKE AN APPOINTMENT FOR FOLOW-UP CARE. IF YOU HAVE A PRIMARY DOCTOR --you should call your primary doctor and schedule and appointment IF YOU DO NOT HAVE A PRIMARY DOCTOR YOU CAN CALL OUR PHYSICIAN REFERRAL HOTLINE AT . IF YOU CAN NOT AFFORD TO SEE A PHYSICIAN YOU CAN CHOSE FROM THE FOLLOWING [facility] INSTITUTIONS: [facility] [address] [place] [address] [facility] [address] [place] [address] [facility] [address] [place] [address] Additional Instructions: Regresar en dos lawrence para recheck. Regrese a la shyam de emergencias PRONTO para empeorar el enrojecimiento, la hinchazn, el dolor, la hinchazn de los labios, la hinchazn de la lengua, la dificultad para respirar. Llame al doctor MAANA y roxanna maikol KELLY PARA DENTRO DE 1-2 LAWRENCE.Dgale a la secretaria que nosotros le instruimos hacer esta kelly.Avise o llame si travis condicin se empeora antes de la kelly. Regresa aqui si peor o no mejor. MAIA GARCIA PA-C Oct 10, 2018 20:36
== END 2018-10-10 20:18 | disposition home or self-care (01) ==
LOC: FTE 18:15
DX: O99.73 Diseases of the skin and subcutaneous tissue complicating the puerperium (principal); L03.311 Cellulitis of abdominal wall
CPT/HCPCS: 36415; 80053; 85025; 96374; 96375; J1100; J1200; Z7502

== ENCOUNTER 2018-10-13 17:24 | Emergency (ER) | payer OTHER ==
[~2018-10-13] VITALS: Ht 162.6 cm; Wt 104.5 kg
[~2018-10-13 17:24] MED LIST changes: -NYST15CR28 TOP
[2018-10-13 18:01] VITALS: Ht 162.6 cm; Wt 104.5 kg
[2018-10-13] MEDS ORDERED: NYST15CR28 TOP (19:02)
[2018-10-13] MEDS ORDERED: HC30CR25 TOP (19:02)
--- NOTE | 2018-10-13 19:04 | ERD ---
ER Documentation Chief Complaint Chief Complaint , surgical site recheck for infection HPI 38-year-old female presented to ED to have a scar evaluated for infection. Patient had her on August 22, 2018. I saw this patient a few weeks ago for the same symptoms and sent her home with Keflex and hydrocortisone topical with strict instructions to follow-up with her [employer] REPRESENTATIVE. The patient is presenting she is afebrile with vitals and stable limits and states that the area is gotten better but she is ran out of the hydrocortisone topical and wants a refill because that helped with the itch. Patient denies any allergies to medications. Patient states the symptoms have improved since her last visit. ROS All systems reviewed and are negative except as per history of present illness. Medications Home Meds Active Scripts Nystatin* (Nystatin*) 15 Gm Cr, 1 APPLIC TOP TID for 7 Days, TUB Prov:KIRIT DOMINGUEZ PA-C 10/13/18 Hydrocortisone* Topical (Hydrocortisone* Topical) 2.5%-28.3 Gm Cream..g., 1 APPLIC TOP BID, #1 TUB Prov:KIRIT DOMINGUEZ PA-C 10/13/18 Clindamycin Hcl* (Clindamycin Hcl*) 300 Mg Capsule, 300 MG PO QID for 10 Days, CAP Prov:FADIA KRISHNA MD 10/07/18 Benzoyl Peroxide (BENZOYL PEROXIDE) 60 Gm Foam, 60 GM TP QAM for 7 Days Prov:KIRIT DOMINGUEZ PA-C 10/01/18 Hydrocortisone* Topical (Hydrocortisone* Topical) 2.5%-28.3 Gm Cream..g., 1 APPLIC TOP BID, #1 TUB Prov:KIRIT DOMINGUEZ PA-C 10/01/18 Diphenhydramine Hcl* (Benadryl*) 25 Mg Cap, 25 MG PO Q6 PRN for ITCHING/RASH, #30 TAB Prov:KIRIT DOMINGUEZ PA-C 10/01/18 Reported Medications Vit No.124/Iron/FA ( Vitamin Tablet) 1 Each Tablet, 1 EACH PO, TAB 08/07/18 Allergies Allergies: Coded Allergies: No Known Allergy (Unverified , 10/01/18) PMhx/Soc History of Surgery: Yes () Anesthesia Reaction: No Hx Neurological Disorder: No Hx Respiratory Disorders: No Hx Cardiac Disorders: No Hx Psychiatric Problems: No Hx Miscellaneous Medical Probl: No Hx Alcohol Use: No Hx Substance Use: No Hx Tobacco Use: No FmHx Family History: No diabetes, No coronary disease, No other Physical Exam Vitals Vital Signs Date Temp Pulse Resp B/P (MAP) Pulse Ox O2 O2 Flow FiO2 Time Delivery Rate 10/13/18 97.2 75 16 143/79 99 18:01 (100) Physical Exam GENERAL: The patient is well-appearing, well-nourished, in no acute distress CHEST: Clear to auscultation bilaterally. There are no rales, wheezes or rhonchi. HEART: Regular rate and rhythm. No murmurs, clicks, rubs or gallops. ABDOMEN:Soft, nontender and nondistended. Good bowel sounds. No rebound or guarding. No gross peritonitis. No gross organomegaly or masses. No Mondragon sign or McBurney point tenderness. SKIN: Nonraised erythematous rash where the patient received her . There is no pus drainage fluctuant masses palpated. I examined this patient a few weeks ago and the skin rash appears to be doing much better. Procedures/MDM ED course: The patient was stable throughout the ED course. The patient and/or family informed of laboratory and diagnostic imaging results throughout the ED course. Medical decision making: This a 38-year-old female presented to ED for a wound check on a incision that was done on August 22. I actually saw this patient few weeks ago in the ED for the same complaint. The patient initially had an erythematous rash with folliculitis in the region of where she had her . Today she is presenting afebrile vital stable. The rash appears to be doing much better. There is no drainage, fluctuant masses, pain to palpation. Negative Nikolsky sign .the patient was recently sent home on a course of Keflex and hydrocortisone topical. The patient was advised that she was was to follow-up with her OB who performed the surgery but states she has not followed up. Patient states the symptoms have improved but she is here because she ran out of the hydrocortisone topical. At this time I have low suspicion for cellulitis, given Ken syndrome abscess, sepsis, internal hemorrhage. Advised the patient that I will refill the prescription for the hydrocortisone topical and give her also nystatin topical. I advised her that she needs to follow-up this week with her OB. I advised the patient the symptoms worsen return to ER immediately. The patient is in agreement to the treatment plan had no further questions upon discharge Prescription for home: Hydrocortisone topical Nystatin I have discussed with the patient proper use and common side effects to expert with the medication . I advised the patient/family to speak with the pharmacist dispensing the medication to be advised of any potential drug interactions with other medication or supplements they may be taking. Discharge: At this time, patient is stable for discharge and outpatient management. I have instructed the patient to follow-up with his\her primary care physician in 1 to 2 days. I have discussed with the patient the possibility of needing to see a specialist for further work-up and imaging studies if symptoms persist. I have instructed the patient to promptly return to the ER for any new or worsening symptoms including increased pain, fever, nausea, vomiting, weakness or LOC. The patient and\or family expressed understanding of and agreement with this plan. All questions were answered. Home care instructions were provided. Disclaimer: Inadvertent spelling and grammatical errors are likely due to EHR\dictation software use and do not reflect on the overall quality of patient care. Also, please note that the electronic time recorded on the note does not necessarily reflect the actual time of the patient encounter. Departure Diagnosis: Primary Impression: Encounter for wound re-check Additional Impression: Folliculitis Condition: Stable Patient Instructions: Wound Check, Lac F/U (No Infection) Referrals: [facility] YOU HAVE RECEIVED A MEDICAL SCREENING EXAM AND THE RESULTS INDICATE THAT YOU DO NOT HAVE A CONDITION THAT REQUIRES URGENT TREATMENT IN THE EMERGENCY DEPARTMENT. FURTHER EVALUATION AND TREATMENT OF YOUR CONDITION CAN WAIT UNTIL YOU ARE SEEN IN YOUR DOCTORS OFFICE WITHIN THE NEXT 1-2 DAYS. IT IS YOUR RESPONSIBILITY TO MAKE AN APPOINTMENT FOR FOLOW-UP CARE. IF YOU HAVE A PRIMARY DOCTOR --you should call your primary doctor and schedule an appointment IF YOU DO NOT HAVE A PRIMARY DOCTOR YOU CAN CALL OUR PHYSICIAN REFERRAL HOTLINE AT IF YOU CAN NOT AFFORD TO SEE A PHYSICIAN YOU CAN CHOSE FROM THE FOLLOWING [facility] CLINICS [facility] [address]. [facility] [address] [facility]. [facility] [address] [facility]. [facility] [address] [facility]. [facility] [address] [facility]. [facility]. [address] [facility]. [facility] YOU HAVE RECEIVED A MEDICAL SCREENING EXAM AND THE RESULTS INDICATE THAT YOU DO NOT HAVE A CONDITION THAT REQUIRES URGENT TREATMENT IN THE EMERGENCY DEPARTMENT. FURTHER EVALUATION AND TREATMENT OF YOUR CONDITION CAN WAIT UNTIL YOU ARE SEEN IN YOUR DOCTORS OFFICE WITHIN THE NEXT 1-2 DAYS. IT IS YOUR RESPONSIBILITY TO MAKE AN APPOINTMENT FOR FOLOW-UP CARE. IF YOU HAVE A PRIMARY DOCTOR --you should call your primary doctor and schedule and appointment IF YOU DO NOT HAVE A PRIMARY DOCTOR YOU CAN CALL OUR PHYSICIAN REFERRAL HOTLINE AT . IF YOU CAN NOT AFFORD TO SEE A PHYSICIAN YOU CAN CHOSE FROM THE FOLLOWING [facility] INSTITUTIONS: [facility] [address] [place] [address] [facility] [address] [place] [address] [facility] + [facility] [address] [place] [address] Additional Instructions: Llame al doctor MAANA y roxanna maikol KELLY PARA DENTRO DE 1-2 LAWRENCE.Dgale a la secretaria que nosotros le instruimos hacer esta kelly.Avise o llame si travis condicin se empeora antes de la kelly. Regresa aqui si peor o no mejor. KIRIT DOMINGUEZ PA-C Oct 13, 2018 19:04
[2018-10-13 19:26] VITALS: BP 148/89; PULSE 79; RESP 18
== END 2018-10-13 19:27 | disposition home or self-care (01) ==
LOC: FTE 17:24
DX: L73.9 Follicular disorder, unspecified (principal)
CPT/HCPCS: 99283

== ENCOUNTER 2018-12-03 07:48 | Emergency (ER) | payer OTHER ==
[~2018-12-03] VITALS: Wt 103.2 kg
[~2018-12-03 07:48] MED LIST changes: +ACET500C5 PO; +AMOX1TAB10 PO; +ASCO60LO PO; +D-ME473S2 PO; +IBUP800T48 PO; +NYST15CR28 TOP; +ONDA4TAB14 PO
[2018-12-03 09:40] VITALS: BP 119/88; PULSE 77; RESP 20
== END 2018-12-03 09:41 | disposition home or self-care (01) ==
LOC: FTE 07:48
DX: L29.9 Pruritus, unspecified (principal)
CPT/HCPCS: 99282